=== PATIENT | female | born 1960 | race Caucasian/White ===

== ENCOUNTER 2017-09-05 09:08 | Emergency (ER) | payer SELFPAY ==
[2017-09-05 10:03] LABS: ABS Basophils 0.1 10^3/ul (0-0.2); ABS Eosinophils 0.1 10^3/ul (0-0.6); ABS Lymphocytes 1.7 10^3/ul (1.0-4.8); ABS Monocytes 0.5 10^3/ul (0-0.8); ABS Neutrophils 2.3 10^3/ul (1.5-7.7); ABS Nucleated RBC 0 10^3/ul; Eosinophil % 1.8 % (0-6); Hematocrit 42 % (35-47); Hemoglobin 14.3 g/dl (12.0-16.0); Lymphocyte % 37.3 % (25-47); Mean Corpuscular HGB Conc 35 g/dl (31-36); Mean Corpuscular Hemoglobin 30 pg (27-31); Mean Corpuscular Volume 88 fL (80-97); Mean Platelet Volume 7.5 um3 (7.4-10.4); Nucleated Red Blood Cells % 0; Platelet Count 205 10^3/ul (150-450); Red Blood Count 4.72 10^6/ul (4.0-5.4); Red Cell Distribution Width 14 % (10.5-15); White Blood Count 4.7 10^3/ul (3.5-10.8)
[2017-09-05 10:12] LABS: INR 0.93 (0.77-1.02)
[2017-09-05 10:32] LABS: EGFR Non-African American 71.6 (>60)
--- NOTE | 2017-09-05 10:33 | RAD ---
INDICATION: Chest pain COMPARISON: None TECHNIQUE: An AP portable view obtained at 1010 hours is submitted. FINDINGS: Bones/Soft Tissues: There are no acute bony findings. Cardiomediastinal: The cardiomediastinal silhouette is normal. Lungs: There are no infiltrates. Pleura: There are no pleural effusions. Other: None IMPRESSION: NO ACTIVE DISEASE.
[2017-09-05 12:10] LABS: Urine Appearance Clear; Urine Blood Negative (Negative); Urine Color Yellow; Urine Ketones Negative (Negative); Urine Protein Negative (Negative); Urine Specific Gravity 1.008 (1.010-1.030); Urine Urobilinogen Negative (Negative)
--- NOTE | 2017-09-05 13:49 | ED ---
Etelvina Toure Rebecca, scribed for Andrew Rios on 09/05/17 at 0936 . HPI Chest Pain - HPI Summary HPI Summary: Pt is a 56 y/o F who presents to ED c/o CP. Pain began last night at 1900 and lasted for about 5-7 minutes. Pain was in the midsternal region, was characterized as "really bad indigestion" and has not returned since it resolved last night. Sx aggravated by nothing, alleviated by spontaneous resolution. Additionally c/o fatigue for multiple days. She does not typically have chest pain whens he walks. No PMHx CAD, FHx angina (father) and CAD ( grandmother). - History of Current Complaint Chief Complaint: EDChestPainROMI Time Seen by Provider: 09/05/17 09:33 Hx Obtained From: Patient Onset/Duration: Started Hours Ago, Resolved Time of Onset: 19:00 Timing: Lasting Minutes - 5-7 minutes Current Severity: None Pain Intensity: 0 Pain Scale Used: 0-10 Numeric Chest Pain Location: Mid Sternal Character: Other: - "indigestion" Aggravating Factor(s): Nothing Alleviating Factor(s): Spontaneous Resolution Associated Signs and Symptoms: Positive: Other: - Fatigue - Allergy/Home Medications Allergies/Adverse Reactions: Allergies Allergy/AdvReac Type Severity Reaction Status Date / Time Sulfa (Sulfonamide Allergy Rash Verified 09/05/17 09:28 Antibiotics) Home Medications: Home Medications Ferrous Sulfate [Slow Fe] 142 mg PO WEEKLY PRN 09/05/17 [History Confirmed 09/05] Multivitamins/Minerals TAB* [Theragran/minerals TAB*] 1 tab PO DAILY 09/05/17 [ History Confirmed 09/05/17] PMH/Surg Hx/FS Hx/Imm Hx Endocrine/Hematology History: Denies: Hx Diabetes Cardiovascular History: Denies: Hx Coronary Artery Disease Infectious Disease History: No Infectious Disease History: Denies: Traveled Outside the [place] in Last 30 Days - Family History Known Family History: Positive: Cardiac Disease, Other - Angina - Social History Alcohol Use: None Substance Use Type: Reports: None Smoking Status (MU): Never Smoked Tobacco Review of Systems Positive: Fatigue Positive: Chest Pain - resolved All Other Systems Reviewed And Are Negative: Yes Physical Exam - Summary Physical Exam Summary: Appearance: Well appearing, no pain distress Skin: warm, dry, reflects adequate perfusion Head/face: normal Eyes: EOMI, MICHEAL ENT: normal Neck: supple, non-tender Respiratory: CTA, breath sounds present Cardiovascular: RRR, pulses symmetrical ~ Abdomen: non-tender, soft Bowel: present Musculoskeletal: normal, strength/ROM intact Neuro: normal, sensory motor intact, A&Ox3 Triage Information Reviewed: Yes Vital Signs On Initial Exam: Initial Vitals Temp Pulse Resp BP Pulse Ox 96.1 F 69 16 184/96 99 09/05/17 09:24 09/05/17 09:24 09/05/17 09:24 09/05/17 09:24 09/05/17 09:24 Vital Signs Reviewed: Yes Diagnostics - Vital Signs Vital Signs Temp Pulse Resp BP Pulse Ox 09/05/17 09:24 96.1 F 69 16 184/96 99 - Laboratory Lab Results: Lab Results 09/05/17 09/05/17 09/05/17 Range/Units 09:53 09:54 09:55 WBC 4.7 (3.5-10.8) 10^3/ul RBC 4.72 (4.0-5.4) 10^6/ul Hgb 14.3 (12.0-16.0) g/dl Hct 42 (35-47) % MCV 88 (80-97) fL MCH 30 (27-31) pg MCHC 35 (31-36) g/dl RDW 14 (10.5-15) % Plt Count 205 (150-450) 10^3/ul MPV 7.5 (7.4-10.4) um3 Neut % (Auto) 49.5 (38-83) % Lymph % (Auto) 37.3 (25-47) % Wise % (Auto) 10.3 H (0-7) % Eos % (Auto) 1.8 (0-6) % Baso % (Auto) 1.1 (0-2) % Absolute Neuts (auto) 2.3 (1.5-7.7) 10^3/ul Absolute Lymphs (auto) 1.7 (1.0-4.8) 10^3/ul Absolute Monos (auto) 0.5 (0-0.8) 10^3/ul Absolute Eos (auto) 0.1 (0-0.6) 10^3/ul Absolute Basos (auto) 0.1 (0-0.2) 10^3/ul Absolute Nucleated RBC 0 10^3/ul Nucleated RBC % 0 INR (Anticoag Therapy) 0.93 (0.77-1.02) APTT 29.9 (26.0-36.3) seconds Sodium (139-145) mmol/L Potassium (3.5-5.0) mmol/L Chloride (101-111) mmol/L Carbon Dioxide (22-32) mmol/L Anion Gap (2-11) mmol/L BUN (6-24) mg/dL Creatinine (0.51-0.95) mg/dL Est GFR ( Amer) (>60) Est GFR (Non-Af Amer) (>60) BUN/Creatinine Ratio (8-20) Glucose (70-100) mg/dL Lactic Acid (0.5-2.0) mmol/L Calcium (8.6-10.3) mg/dL Total Bilirubin (0.2-1.0) mg/dL AST (13-39) U/L ALT (7-52) U/L Alkaline Phosphatase (34-104) U/L Troponin I (<0.04) ng/mL Total Protein (6.4-8.9) g/dL Albumin (3.2-5.2) g/dL Globulin (2-4) g/dL Albumin/Globulin Ratio (1-3) Lipase (11.0-82.0) U/L Beta HCG, Quant mIU/mL Urine Color Yellow Urine Appearance Clear Urine pH 7.0 (5-9) Ur Specific [place] 1.008 L (1.010-1.030) Urine Protein Negative (Negative) Urine Ketones Negative (Negative) Urine Blood Negative (Negative) Urine Nitrate Negative (Negative) Urine Bilirubin Negative (Negative) Urine Urobilinogen Negative (Negative) Ur Leukocyte Esterase Trace A (Negative) Urine WBC (Auto) Trace(0-5/hpf) (Absent) Urine RBC (Auto) Absent (Absent) Ur Squamous Epith Cells Present A (Absent) Urine Bacteria Absent (Absent) Urine Glucose Negative (Negative) 09/05/17 09/05/17 09/05/17 Range/Units 09:55 09:55 12:53 WBC (3.5-10.8) 10^3/ul RBC (4.0-5.4) 10^6/ul Hgb (12.0-16.0) g/dl Hct (35-47) % MCV (80-97) fL MCH (27-31) pg MCHC (31-36) g/dl RDW (10.5-15) % Plt Count (150-450) 10^3/ul MPV (7.4-10.4) um3 Neut % (Auto) (38-83) % Lymph % (Auto) (25-47) % Wise % (Auto) (0-7) % Eos % (Auto) (0-6) % Baso % (Auto) (0-2) % Absolute Neuts (auto) (1.5-7.7) 10^3/ul Absolute Lymphs (auto) (1.0-4.8) 10^3/ul Absolute Monos (auto) (0-0.8) 10^3/ul Absolute Eos (auto) (0-0.6) 10^3/ul Absolute Basos (auto) (0-0.2) 10^3/ul Absolute Nucleated RBC 10^3/ul Nucleated RBC % INR (Anticoag Therapy) (0.77-1.02) APTT (26.0-36.3) seconds Sodium 140 (139-145) mmol/L Potassium 4.4 (3.5-5.0) mmol/L Chloride 105 (101-111) mmol/L Carbon Dioxide 31 (22-32) mmol/L Anion Gap 4 (2-11) mmol/L BUN 14 (6-24) mg/dL Creatinine 0.83 (0.51-0.95) mg/dL Est GFR ( Amer) 92.1 (>60) Est GFR (Non-Af Amer) 71.6 (>60) BUN/Creatinine Ratio 16.9 (8-20) Glucose 107 H (70-100) mg/dL Lactic Acid 1.1 (0.5-2.0) mmol/L Calcium 9.5 (8.6-10.3) mg/dL Total Bilirubin 0.50 (0.2-1.0) mg/dL AST 22 (13-39) U/L ALT 27 (7-52) U/L Alkaline Phosphatase 98 (34-104) U/L Troponin I 0.00 0.00 (<0.04) ng/mL Total Protein 7.1 (6.4-8.9) g/dL Albumin 4.1 (3.2-5.2) g/dL Globulin 3.0 (2-4) g/dL Albumin/Globulin Ratio 1.4 (1-3) Lipase 33 (11.0-82.0) U/L Beta HCG, Quant 5.20 mIU/mL Urine Color Urine Appearance Urine pH (5-9) Ur Specific [place] (1.010-1.030) Urine Protein (Negative) Urine Ketones (Negative) Urine Blood (Negative) Urine Nitrate (Negative) Urine Bilirubin (Negative) Urine Urobilinogen (Negative) Ur Leukocyte Esterase (Negative) Urine WBC (Auto) (Absent) Urine RBC (Auto) (Absent) Ur Squamous Epith Cells (Absent) Urine Bacteria (Absent) Urine Glucose (Negative) Result Diagrams: 09/05/17 09:55 09/05/17 09:55 Lab Statement: Any lab studies that have been ordered have been reviewed, and results considered in the medical decision making process. - Radiology CXR Xray Interpretation: No Acute Changes - NO ACTIVE DISEASE. Radiology report was reviewed by ED physician. Radiology Interpretation Completed By: Radiologist - EKG 09:36 Cardiac Rate: NL - 61 bpm EKG Rhythm: Sinus Rhythm EKG Interpretation: No acute changes Re-Evaluation - Re-Evaluation First Eval Re-Evaluation Time: 11:00 Comment: Discussed results with pt, will repeat troponin. Chest Pain Course/Dx - Course Assessment/Plan: Pt is a 56 y/o F who presents to ED c/o midsternal CP described as "really bad indigestion" that began last night at 1900 and lasted for about 5-7 minutes. Sx alleviated by spontaneous resolution. Additionally c/ o fatigue for multiple days. She does not typically have chest pain whens he walks. No PMHx CAD, FHx angina (father) and CAD (grandmother). Blodo work and UA were done with blood work results including 2 troponins, both 0.00. CXR reveals no acute findings. EKG is sinus rhythm with no acute changes. Pt will be D/C to home with Dx of atypical CP with a follow up with her PCP and Rx for Protonix. Allergy noted. Patient had this chest pain last night no pain after that in the emergency room she just came to check herself. Maybe she has GERD but unlikely acute coronary syndrome we will discharge the patient on Protonix to follow up with primary care in 3 days and also stress test as an outpatient for further evaluation of the heart. Patient understands and agree with the plan NO indication to admit the patient at present - Chest Pain Differential Diagnosis/HQI/PQRI: Acute [place], ACS, Chest Wall, GI Disease, Lower Respiratory Infection, Other: - gers - Diagnoses Provider Diagnoses: Atypical chest pain Discharge - Sign-Out/Discharge Documenting (check all that apply): Discharge/Admit/Transfer - Discharge - Discharge Plan Condition: Stable Disposition: HOME Prescriptions: Pantoprazole TAB (NF) [Protonix TAB (NF)] 40 mg PO DAILY #30 tab Patient Education Materials: Chest Pain (ED) Referrals: Radha Washington [Primary Care Provider] - 3 Days Additional Instructions: RETURN TO ED FOR ANY NEW OR WORSENING SYMPTOMS - Billing Disposition and Condition Condition: STABLE Disposition: HOME The documentation as recorded by the Etelvina gallegos Rebecca accurately reflects the service I personally performed and the decisions made by , Andrew Rios.
[2017-09-05 13:50] VITALS: BP 183/96
== END 2017-09-05 13:53 | disposition home or self-care (01) ==
LOC: ED 09:08
DX: R07.89 Other chest pain (principal); R53.83 Other fatigue
CPT/HCPCS: 36415; 71045; 80053; 81003; 81015; 83605; 83690; 84484; 84702; 85025; 85610; 85730; 87086; 93005; 99283